=== PATIENT | female | born 1965 | race Caucasian/White ===

== ENCOUNTER 2017-06-04 23:14 | Observation (INO) | payer BC ==
[~2017-06-04] VITALS: Ht 167.6 cm; Wt 71.4 kg
[~2017-06-04 23:14] MED LIST: ASPIR-LOW81 MG PO; ATARAX,VISTARIL25 MG PO; BENADRYL25 MG PO; MOTRIN800 MG PO; PRAVASTATIN SOD40 MG PO; PREDNISONE10 MG PO; PREDNISONE20 MG PO
[2017-06-05 00:03] LABS: HEMATOCRIT 37.7 % (36.0-46.0); HEMOGLOBIN 13.2 G/DL (11.9-15.5); MCH 31.2 PG (29.0-34.0); MCV 89.1 FL (83-99); PLATELET COUNT 218 K/uL (156-360); RBC DIS.WIDTH-CV 12.4 % (11.8-14.6); RED BLOOD COUNT 4.23 M/uL (3.80-5.20); WHITE BLOOD COUNT 7.6 K/uL (4.1-10.2)
[2017-06-05 00:11] LABS: CHLORIDE 107 mEq/L (99-109); POTASSIUM 3.4 mEq/L (3.7-5.4); SODIUM 142 mEq/L (136-147)
[2017-06-05 00:13] LABS: GLUCOSE 112 mg/dL (70-99)
[2017-06-05 00:17] LABS: CREATININE 1.2 mg/dL (0.6-1.3); GFR ESTIMATE (CALCULATED) 50 mL/min/
[2017-06-05 00:18] LABS: UREA NITROGEN (BUN) 17 mg/dL (9-23)
[2017-06-05 00:23] LABS: TROP-I INTERPRETATION NEGATIVE; TROPONIN-I < 0.01 ng/mL (0.0-0.30)
[2017-06-05] MEDS ORDERED: ASPIRIN325 MG PO (01:31)
[2017-06-05] MEDS ORDERED: POLYETHYLENE GL17 GM PO (01:31)
[2017-06-05 01:42] LABS: ALBUMIN 4.3 g/dL (3.2-4.8)
[2017-06-05 01:46] LABS: TOTAL BILIRUBIN 0.3 mg/dL (0.0-1.0)
[2017-06-05 01:47] LABS: ALKALINE PHOSPHATASE 127 IU/L (3-129)
[2017-06-05 01:50] LABS: AST (GOT) 50 IU/L (2-34); DIRECT BILIRUBIN 0.1 mg/dL (0.0-0.3)
[2017-06-05 01:51] LABS: ALT (GPT) 65 IU/L (3-49)
[2017-06-05 03:06] LABS: AMYLASE 59 IU/L (1-118)
[2017-06-05 03:14] LABS: LIPASE 30 U/L (1.0-51.0)
[2017-06-05 12:55] VITALS: BP 118/56
[2017-06-05 13:38] LABS: TROP-I INTERPRETATION NEGATIVE; TROPONIN-I 0.01 ng/mL (0.0-0.30)
== END 2017-06-05 16:07 | disposition home or self-care (01) ==
LOC: EME 23:14 → EDOF 06-05 02:12 → ENRESERV 06-05 02:14 → 5WEST 06-05 12:44
PROVIDERS: Nurse Practitioner Family; Physician Assistant Medical
DX: R07.89 Other chest pain (principal); R10.12 Left upper quadrant pain; R11.2 Nausea with vomiting, unspecified; R19.7 Diarrhea, unspecified; R20.0 Anesthesia of skin; R20.2 Paresthesia of skin; M50.322 Other cervical disc degeneration at C5-C6 level; E78.5 Hyperlipidemia, unspecified; Z90.710 Acquired absence of both cervix and uterus; Z79.82 Long term (current) use of aspirin
CPT/HCPCS: 71046; 74176; 76705; 80048; 80076; 82150; 83690; 84484; 85027; 93005; 99281; 99285; G0378; J7030